=== PATIENT | male | born 1990 | race Caucasian/White ===

== ENCOUNTER 2020-11-15 09:20 | Emergency (ER) | payer OTHER, SELFPAY ==
--- NOTE | ~2020-11-15 | XR_ITS ---
EXAMINATION: XR lumbar spine 2-3V EXAM DATE: 11/15/2020 10:05 INDICATION: pop sensation x 1 day, lbp when bending, radiating pain @BLE. TECHNIQUE: Lumber spine frontal, lateral, lateral L5-S1 projections for interpretation. There is no prior study for comparison. FINDINGS: Mild lumbar facet arthropathy. The vertebral bodies are aligned in the AP dimension. Mild t o moderate disc disease at T10-11. Vertebral lumbar body and disc heights are well-maintained. There are no acute fractures identified. There is approximately 5 mm calcific density projecting over expe cted location of right kidney, possible right nephrolithiasis. IMPRESSION: 1. Mild lumbar facet arthropathy. 2. T10-11 mild to moderate disc disease. 3. Possible right nephrolithiasis. 4. No acute findings. Reviewed, dictated and finalized at location A.
[2020-11-15 09:27] VITALS: BP 137/87; PULSE 77; RESP 16; TEMP 37; O2SAT 98
--- NOTE | 2020-11-15 09:40 | ED.GENADULT ---
HPI - General Adult General Chief complaint: Back Pain/Injury Stated complaint: Low Back pain Source: patient Mode of arrival: ambulatory Limitations: no limitations History of Present Illness HPI narrative: Arnie is a previously healthy 30M that presented to the ED with low back pain. Yesterday evening he bent down to potato picker some books and had immediate pain shooting up his spine. There was no fall or trauma to the area. No numbness, weakness, paresthesias, or loss of bowel/bladder control. The pain does not radiate down his legs. Related Data Allergies Allergy/AdvReac Type Severity Reaction Status Date / Time No Known Allergies Allergy Verified 11/15/20 09:33 Review of Systems Constitutional: Constitutional: Reports no additional constitutional complaints, Denies chills and Denies fever(s) Eyes: Eyes: Reports no additional eye complaints ENT: Reports system reviewed and no additional complaints, except as documented Cardiovascular: Cardiovascular: Reports no additional cardiovascular complaints Respiratory: Respiratory: Reports no additional respiratory complaints Gastrointestinal: Gastrointestinal: Reports no additional gastrointestinal complaints Genitourinary: Genitourinary: Reports no additional male genitourinary complaints Musculoskeletal: Musculoskeletal: Reports as per HPI Integumentary/Breasts: Skin/Breast: Reports system reviewed and no additional complaints, except as docu Neurologic: Reports system reviewed and no additional complaints, except as documented Psychiatric: Psychiatric: Reports no additional psychiatric complaints Exam Const: General: alert Orientation/consciousness: patient oriented x3 Limitations: No altered mental status Other: In mild distress but did have his phone out. HENMT: Head: normal to inspection Other: atrauamtic Eyes: Pupils: Equal, round and reactive pupils present Neck: Neck: normal visual inspection Chest: Chest palpation & inspection: normal inspection of the chest Resp: Effort & Inspection: normal respiratory effort, not labored, no retractions and no use of accessory muscles Cardio: Rate: regular rate GI: Inspection: non-distended GI Palp: Yes Soft to palpation and No Tenderness to palpation present (GI) Back/Spine/Pelvis: Other: Mild midline tenderness in the lumbar spine. Hypertonic paraspinal musculature bilaterally. Globally decreased ROM in the lumbar spine. 5/5 strength in the lower extremities bilaterally. Skin: General skin exam: normal color Rashes: no rashes Neuro: General: patient oriented x3, moves all extremities and CN's II-XI intact bilaterally Other: 2/4 patellar reflexes bilaterally, 2/4 Achilles reflexes bilaterally. Sensation intact in all dermatomes Extrem: General: normal to inspection Psych: Appearance: grossly normal Mental Status: mental status grossly normal Thought content: Yes Normal thought content present Course Course Emergency Course: Ordered toradol, cyclobenzaprine and radiographs. Vital Signs Vital signs: Vital Signs Temperature 98.6 F 11/15/20 09:27 Pulse Rate 77 11/15/20 09:27 Respiratory Rate 16 11/15/20 09:27 Blood Pressure 137/87 11/15/20 09:27 Pulse Oximetry 98 11/15/20 09:27 Temperature 98.6 F 11/15/20 09:27 Pulse Rate 77 11/15/20 09:27 Respiratory Rate 16 11/15/20 09:27 Blood Pressure 137/87 11/15/20 09:27 Pulse Oximetry 98 11/15/20 09:27 Medical Decision Making Vital Signs Vital Signs: Vital Signs Temperature 98.6 F 11/15/20 09:27 Pulse Rate 77 11/15/20 09:27 Respiratory Rate 16 11/15/20 09:27 Blood Pressure 137/87 11/15/20 09:27 Pulse Oximetry 98 11/15/20 09:27 Temperature 98.6 F 11/15/20 09:27 Pulse Rate 77 11/15/20 09:27 Respiratory Rate 16 11/15/20 09:27 Blood Pressure 137/87 11/15/20 09:27 Pulse Oximetry 98 11/15/20 09:27 Discharge Plan Discharge Clinical Impression: Strain of lumbar region
[2020-11-15] MEDS: CYCLOBENZAPRINE HCL 10 MG TABLET PO (09:47)
[2020-11-15] MEDS: KETOROLAC 30 MG/ML VIAL (*BKC) IM (09:48)
[2020-11-15 10:30] VITALS: BP 124/76; PULSE 62; RESP 14; O2SAT 98
== END 2020-11-15 10:33 | disposition home or self-care (01) ==
PROVIDERS: Emergency Provider Family Medicine
DX: S39.012A Strain of muscle, fascia and tendon of lower back, initial encounter (principal); X50.1XXA Overexertion from prolonged static or awkward postures, initial encounter
CPT/HCPCS: 72100; 96372; 99283; A9270; J1885